=== PATIENT | male | born 1945 | race Caucasian/White ===

== ENCOUNTER 2020-12-08 05:14 | Emergency (ER) | payer MEDICARE, OTHER ==
[~2020-12-08] VITALS: Ht 167.7 cm; Wt 75.1 kg
[2020-12-08] MEDS ORDERED: KETOROLAC 30 MG/ML VIAL IVP STA (05:37)
[2020-12-08] MEDS ORDERED: NS IV 1000 ML 1,000 ML IV STA (05:37)
[2020-12-08] MEDS ORDERED: METOCLOPRAMIDE INJ 10 MG/2 ML (REGLAN) IVP STA (05:37)
--- NOTE | 2020-12-08 05:37 | ED Abdominal Pain ---
General Chief Complaint: Abdominal/GI Problems Stated Complaint: LOWER LEFT ABDOMINAL PAIN History of Present Illness Date Seen by Provider: December 08, 2020 Time Seen by Provider: 05:30 Initial Comments 75-year-old male presents with left lower quadrant pain. Patient reports that the pain started 4 days ago. Patient reports that he has a history of diverticulitis. He called his primary care provider who started him on Augmentin. Patient reports that the pain got better for 1 day and then has gotten worse. He denies any flank pain. He denies any vomiting. Patient reports that he has had bowel movements for the last 3 days however has not eaten much. He denies any urinary symptoms, fevers, chills, headache, cough or other systemic complaints. (CAMDEN HUIZAR DO) Allergies and Home Medications Allergies Coded Allergies: No Known Drug Allergies (Unverified , 12/08/20) Patient Home Medication List Home Medication List Reviewed: Yes (CAMDEN HUIZAR DO) Review of Systems Review of Systems Constitutional: No chills, No fever Respiratory: Denies Cough, Denies Shortness of Air Cardiovascular: Denies Chest Pain, Denies Irregular Heart Rate Gastrointestinal: Abdominal Pain; Denies Diarrhea, Denies Vomiting Genitourinary: No Symptoms Reported Musculoskeletal: no symptoms reported Skin: no symptoms reported Psychiatric/Neurological: No Symptoms Reported Endocrine: No Symptoms Reported Hematologic/Lymphatic: No Symptoms Reported (CAMDEN HUIZAR DO) Past Zbyusdw-Gcdecd-Sausqn Hx Past Med/Social Hx: Reviewed Nursing Past Med/Soc Hx (CAMDEN HUIZAR DO) Physical Exam Vital Signs Vital Signs - First Documented 12/08/20 05:23 Temp 36.0 Pulse 66 Resp 16 B/P (MAP) 160/73 (102) Pulse Ox 94 O2 Delivery Room Air (EDVIN OWENS DO) Vital Signs Capillary Refill : (CAMDEN HUIZAR DO) Height/Weight/BMI Height: '" Weight: lbs. oz. kg; BMI Method: General Appearance: no apparent distress Respiratory: lungs clear, normal breath sounds Cardiovascular: normal peripheral pulses, regular rate, rhythm Gastrointestinal: soft; No distended, No guarding, No rebound; tenderness (Left lower quadrant) Extremities: normal range of motion, non-tender Neurologic/Psychiatric: alert, normal mood/affect, oriented x 3 Skin: normal color, warm/dry (KIKO HUIZARVOR L DO) Progress/Results/Core Measures Results/Orders Lab Results Laboratory Tests Test 12/08/20 05:32 12/08/20 06:04 Range/Units White Blood Count 14.0 H 4.3-11.0 10^3/uL Red Blood Count 5.09 4.35-5.85 10^6/uL Hemoglobin 15.8 13.3-17.7 G/DL Hematocrit 45 40-54 % Mean Corpuscular Volume 89 80-99 FL Mean Corpuscular Hemoglobin 31 25-34 PG Mean Corpuscular Hemoglobin Concent 35 32-36 G/DL Red Cell Distribution Width 12.0 10.0-14.5 % Platelet Count 244 130-400 10^3/uL Mean Platelet Volume 9.2 7.4-10.4 FL Immature Granulocyte % (Auto) 0 % Neutrophils (%) (Auto) 83 H 42-75 % Lymphocytes (%) (Auto) 8 L 12-44 % Monocytes (%) (Auto) 9 0-12 % Eosinophils (%) (Auto) 0 0-10 % Basophils (%) (Auto) 0 0-10 % Neutrophils # (Auto) 11.6 H 1.8-7.8 X 10^3 Lymphocytes # (Auto) 1.1 1.0-4.0 X 10^3 Monocytes # (Auto) 1.2 H 0.0-1.0 X 10^3 Eosinophils # (Auto) 0.0 0.0-0.3 10^3/uL Basophils # (Auto) 0.0 0.0-0.1 10^3/uL Immature Granulocyte # (Auto) 0.1 0.0-0.1 10^3/uL Neutrophils % (Manual) 82 % Lymphocytes % (Manual) 8 % Monocytes % (Manual) 7 % Band Neutrophils 2 % Atypical Lymphocytes 1 % Blood Morphology Comment NORMAL Sodium Level 136 135-145 MMOL/L Potassium Level 3.9 3.6-5.0 MMOL/L Chloride Level 98 98-107 MMOL/L Carbon Dioxide Level 22 21-32 MMOL/L Anion Gap 16 H 5-14 MMOL/L Blood Urea Nitrogen 24 H 7-18 MG/DL Creatinine 1.23 0.60-1.30 MG/DL Estimat Glomerular Filtration Rate 58 BUN/Creatinine Ratio 20 Glucose Level 117 H 70-105 MG/DL Calcium Level 9.3 8.5-10.1 MG/DL Corrected Calcium 8.5-10.1 MG/DL Total Bilirubin 0.9 0.1-1.0 MG/DL Aspartate Amino Transf (AST/SGOT) 22 5-34 U/L Alanine Aminotransferase (ALT/SGPT) 16 0-55 U/L Alkaline Phosphatase 97 40-136 U/L C-Reactive Protein 2.32 H <0.50 MG/DL Total Protein 7.8 6.4-8.2 GM/DL Albumin 4.7 H 3.2-4.5 GM/DL Urine Color YELLOW Urine Clarity CLEAR Urine pH 6.0 5-9 Urine Specific [place] >=1.030 1.016-1.022 Urine Protein TRACE H NEGATIVE Urine Glucose (UA) NEGATIVE NEGATIVE Urine Ketones 2+ H NEGATIVE Urine Nitrite NEGATIVE NEGATIVE Urine Bilirubin NEGATIVE NEGATIVE Urine Urobilinogen 0.2 < = 1.0 MG/DL Urine Leukocyte Esterase NEGATIVE NEGATIVE Urine RBC (Auto) 1+ H NEGATIVE Urine RBC 5-10 H /HPF Urine WBC 0-2 /HPF Urine Squamous Epithelial Cells NONE /HPF Urine Crystals NONE /LPF Urine Bacteria NEGATIVE /HPF Urine Casts NONE /LPF Urine Mucus MODERATE H /LPF Urine Culture Indicated NO (ROVENSTINE,EDVIN L DO) Medications Given in ED Current Medications Medications Dose Ordered Sig/Daxa Route Start Time Stop Time Status Last Admin Dose Admin Iohexol 100 ml ONCE ONCE IV 12/08/20 05:45 12/08/20 05:46 DC 12/08/20 06:41 100 ML Sodium Chloride 100 ml ONCE ONCE IV 12/08/20 05:45 12/08/20 05:46 DC 12/08/20 06:41 100 ML (ROVENSTINE,EDVIN L DO) Vital Signs/I&O 12/08/20 12/08/20 12/08/20 05:23 06:37 07:09 Temp 36.0 36.0 Pulse 66 66 69 Resp 16 16 18 B/P (MAP) 160/73 (102) 145/72 (96) 130/71 (90) Pulse Ox 94 94 96 O2 Delivery Room Air Room Air Room Air (ROVENSTINE,EDVIN L DO) Departure Impression Primary Impression: Ureterolithiasis Additional Impression: Hydronephrosis Qualified Codes: N13.2 - Hydronephrosis with renal and ureteral calculous obstruction Disposition: HOME, SELF-CARE Condition: Improved Departure-Patient Inst. Decision time for Depature: 07:31 (EDVIN OWENS DO) Referrals: SELF,SCOTT ARREDONDO (PCP/Family) Primary Care Physician CORTES LIMON MD Add. Discharge Instructions: Call Dr Limon's (Urologist) office today to arrange a follow up appointment regarding your kidney stone. Strain all of your urine looking for a stone. Take the medication given today as instructed. Return to the ER for any worsening of your pain. All discharge instructions reviewed with patient and/or family. Voiced understanding. Scripts Ondansetron (Ondansetron Odt) 4 Mg Tab.rapdis 4 MG PO TID for Nausea, #10 TAB Prov: EDVIN OWENS DO 12/08/20 Oxycodone HCl/Acetaminophen (Oxycodone-Acetaminophen 5-325) 1 Each Tablet 1 EACH PO Q4H PRN for PAIN-MODERATE MDD 6 for 3 Days, #14 TAB 0 Refills Prov: EDVIN OWENS DO 12/08/20 Ibuprofen (Ibuprofen) 800 Mg Tablet 800 MG PO Q8H PRN for PAIN, #30 TAB 0 Refills Prov: YEIMISTEDVIN GOMEZ DO 12/08/20 Tamsulosin HCl (Flomax) 0.4 Mg Cap 0.4 MG PO DAILY, #5 CAP Prov: EDVIN OWENS DO 12/08/20 CAMDEN HUIZAR DO December 08, 2020 05:37 EDVIN OWENS DO December 08, 2020 07:34
[2020-12-08] MEDS ORDERED: HOLD METFORMIN - RECEIVED CONTRAST 20 ML VIAL IV SCH (05:45)
[2020-12-08] MEDS ORDERED: IOHEXOL 350 MG/ML 100 ML (OMNIPAQUE 350) VIAL IV ONE (05:45)
[2020-12-08] MEDS ORDERED: NS 100 ML (IVPB) BAG IV ONE (05:45)
[2020-12-08 06:13] LABS: BASOPHILS % (AUTO) 0 % (0-10); EOSINOPHILS % (AUTO) 0 % (0-10); HEMATOCRIT 45 % (40-54); HEMOGLOBIN 15.8 G/DL (13.3-17.7); LYMPHOCYTES # (AUTO) 1.1 X 10^3 (1.0-4.0); LYMPHOCYTES % (AUTO) 8 % (12-44); MEAN CORPUSCULAR HEMOGLOBIN 31 PG (25-34); MEAN CORPUSCULAR HGB CONC 35 G/DL (32-36); MEAN CORPUSCULAR VOLUME 89 FL (80-99); MEAN PLATELET VOLUME 9.2 FL (7.4-10.4); MONOCYTES # (AUTO) 1.2 X 10^3 (0.0-1.0); MONOCYTES % (AUTO) 9 % (0-12); NEUTROPHILS # (AUTO) 11.6 X 10^3 (1.8-7.8); NEUTROPHILS % (AUTO) 83 % (42-75); PLATELET COUNT 244 10^3/uL (130-400)
[2020-12-08 06:24] LABS: ATYPICAL LYMPHOCYTES 1 %; BAND NEUTROPHILS 2 %; LYMPHOCYTES % (MANUAL) 8 %; MONOCYTES % (MANUAL) 7 %; NEUTROPHILS % (MANUAL) 82 %
[2020-12-08 06:25] LABS: RBC MORPH NORMAL
[2020-12-08 06:34] LABS: ALANINE AMINOTRANSFERASE 16 U/L (0-55); ALKALINE PHOSPHATASE 97 U/L (40-136); BILIRUBIN,TOTAL 0.9 MG/DL (0.1-1.0); BUN/CREATININE RATIO 20; CALCIUM 9.3 MG/DL (8.5-10.1); CARBON DIOXIDE 22 MMOL/L (21-32); CHLORIDE 98 MMOL/L (98-107); CREATININE SERUM 1.23 MG/DL (0.60-1.30); GFR ESTIMATED 58; GLUCOSE 117 MG/DL (70-105); POTASSIUM 3.9 MMOL/L (3.6-5.0); SODIUM 136 MMOL/L (135-145); TOTAL PROTEIN 7.8 GM/DL (6.4-8.2)
[2020-12-08 06:35] LABS: ALBUMIN 4.7 GM/DL (3.2-4.5)
[2020-12-08 06:39] LABS: BACTERIA,URINE NEGATIVE /HPF; BILIRUBIN,URINE NEGATIVE (NEGATIVE); CLARITY,URINE CLEAR; COLOR,URINE YELLOW; GLUCOSE, URINE (UA) NEGATIVE (NEGATIVE); KETONES,URINE 2+ (NEGATIVE); LEUKOCYTE ESTERASE ,URINE NEGATIVE (NEGATIVE); NITRITE,URINE NEGATIVE (NEGATIVE); PROTEIN,URINE TRACE (NEGATIVE); WBC,URINE 0-2 /HPF
--- NOTE | 2020-12-08 07:22 | Diagnostic Imaging Report ---
EXAMINATION: CT abdomen and pelvis with intravenous contrast. TECHNIQUE: Multiple contiguous axial images were obtained through the abdomen and pelvis after the uneventful administration of intravenous contrast. All CT scans use one or more of the following dose optimizing techniques: automated exposure control, MA and/or KvP adjustment based on patient size and exam type or iterative reconstruction. HISTORY: Left lower quadrant abdominal pain. Recently diagnosed with diverticulitis. COMPARISON: None available. FINDINGS: The heart is unremarkable. The included lung bases are clear. Simple appearing hepatic cysts are seen throughout the liver. The gallbladder is unremarkable. The portal vein is patent. Obstructing calculus is seen in the mid left ureter measuring 6 mm with moderate left-sided hydronephrosis. Additional nonobstructing calculi are seen in the left kidney measuring up to 5 mm. There is perinephric fat stranding in the left kidney. The right kidney is unremarkable. The urinary bladder is nondistended. The liver, spleen, pancreas, and adrenal glands have a normal appearance. There is no pathologically enlarged mesenteric or retroperitoneal adenopathy. The bowel loops are nondilated. The appendix is visualized in the right lower quadrant and has a normal appearance. Scattered diverticuli are present in the descending and sigmoid colon without evidence of acute diverticulitis. There is no free fluid or free air. No acute osseous abnormalities. There is grade 1 anterolisthesis of L4 on L5 with bilateral pars defects at L4. Small fat-containing left inguinal hernia is noted. There is no free air, loculated collection, or adenopathy in the pelvis. IMPRESSION: 1. Obstructing urolithiasis in the mid left ureter measuring 6 mm with moderate left-sided hydronephrosis. Additional nonobstructing calculi are seen in the left kidney measuring up to 5 mm. 2. Scattered diverticuli without evidence of acute diverticulitis. 3. Grade 1 anterolisthesis of L4 on L5 with bilateral pars defects at L4. Dictated by: Dictated on workstation # [id number]
[2020-12-08] MEDS ORDERED: IBUP-1780 PO (07:34)
[2020-12-08] MEDS ORDERED: TMSL.4C PO (07:34)
[2020-12-08] MEDS ORDERED: ONDA4TAB11 PO (07:34)
[2020-12-08] MEDS ORDERED: OXYC1TAB11 PO (07:34)
[2020-12-08 07:55] VITALS: BP 145/76
[2020-12-12] MEDS ORDERED: FISH1CAP15 PO (15:03)
[2020-12-12] MEDS ORDERED: CHOL-34 PO (15:03)
[2020-12-12] MEDS ORDERED: L.AC1CAP6 PO (15:03)
[2020-12-12] MEDS ORDERED: CALC625T14 PO (15:03)
[2020-12-12] MEDS ORDERED: SELE200T11 PO (15:03)
[2020-12-12] MEDS ORDERED: MONT10TA32 PO (15:03)
[2020-12-12] MEDS ORDERED: GLUC100016 PO (15:03)
[2020-12-12] MEDS ORDERED: ATOR10TA66 PO (15:03)
[2020-12-12] MEDS ORDERED: MULT-1056 PO (15:03)
[2020-12-13] MEDS ORDERED: NITR-65 PO (09:50)
[2020-12-13] MEDS ORDERED: TRAM50TA3 PO (09:50)
[2020-12-13] MEDS ORDERED: TMSL.4C PO (09:50)
== END 2020-12-08 07:55 | disposition home or self-care (01) ==
LOC: ER FS 05:19
DX: N13.2 Hydronephrosis with renal and ureteral calculous obstruction (principal); Z87.19 Personal history of other diseases of the digestive system
CPT/HCPCS: 36415; 74177; 80053; 81000; 85007; 85027; 86141

== ENCOUNTER 2020-12-12 14:48 | Outpatient (CLI) | payer MEDICARE ==
[~2020-12-12] VITALS: Ht 167.7 cm; Wt 75.0 kg
[~2020-12-12 14:48] MED LIST changes: -ATOR10TA66 PO; -CALC625T14 PO; -CHOL-34 PO; -FISH1CAP15 PO; -GLUC100016 PO; -L.AC1CAP6 PO; -MONT10TA32 PO; -MULT-1056 PO; -NITR-65 PO; -SELE200T11 PO; -TRAM50TA3 PO
[2020-12-12] MEDS ORDERED: GLUC100016 PO ×2 (15:03)
[2020-12-12] MEDS ORDERED: SELE200T11 PO ×2 (15:03)
[2020-12-12] MEDS ORDERED: L.AC1CAP6 PO ×2 (15:03)
[2020-12-12] MEDS ORDERED: MONT10TA32 PO ×2 (15:03)
[2020-12-12] MEDS ORDERED: CHOL-34 PO ×2 (15:03)
[2020-12-12] MEDS ORDERED: ATOR10TA66 PO ×2 (15:03)
[2020-12-12] MEDS ORDERED: CALC625T14 PO ×2 (15:03)
[2020-12-12] MEDS ORDERED: MULT-1056 PO ×2 (15:03)
[2020-12-12] MEDS ORDERED: FISH1CAP15 PO ×2 (15:03)
[2020-12-13] MEDS ORDERED: TMSL.4C PO ×2 (09:50)
[2020-12-13] MEDS ORDERED: TRAM50TA3 PO ×2 (09:50)
[2020-12-13] MEDS ORDERED: NITR-65 PO ×2 (09:50)
== END 2020-12-12 15:10 | disposition home or self-care (01) ==
LOC: PREOP 14:48
PROVIDERS: ATTEND Urology
DX: Z01.818 Encounter for other preprocedural examination (principal)

== ENCOUNTER → 2020-12-12 | Outpatient (CLI) | payer MEDICARE ==
[~2020-12-12] MED LIST: ATOR10TA66 PO; CALC625T14 PO; CHOL-34 PO; FISH1CAP15 PO; GLUC100016 PO; IBUP-1780 PO; L.AC1CAP6 PO; MONT10TA32 PO; MULT-1056 PO; NITR-65 PO; ONDA4TAB11 PO; OXYC1TAB11 PO; SELE200T11 PO; TMSL.4C PO; TRAM50TA3 PO
--- NOTE | 2020-12-12 15:54 | Diagnostic Imaging Report ---
INDICATION: Left ureteral stone COMPARISON: 12/08/2020 TECHNIQUE: Single radiograph of the abdomen dated 12/12/2020 FINDINGS: Several left-sided renal calculi are again identified, including a 6 mm calculus overlying the superior pole of the left kidney. Punctate calcifications overlying the right renal shadow are again identified. A 6 mm stone is seen overlying the left L5 transverse process, overlying the expected location of the left ureter. This corresponds to previously noted ureterolith as seen on the prior CT, in unchanged location when compared to that prior examination. Multiple phleboliths within the lower pelvis. Nonobstructive bowel gas pattern. No free air. Scattered osseous degenerative changes without acute osseous abnormality. IMPRESSION: A 6 mm left-sided ureterolith adjacent to the L5 level, not significantly changed in position when compared to the prior examination. Additional left greater than right bilateral renal calculi. Dictated by: Dictated on workstation # [id number]
== END ==
LOC: RAD 12:39
PROVIDERS: ATTEND Urology
DX: N20.2 Calculus of kidney with calculus of ureter (principal)
CPT/HCPCS: 74018

== ENCOUNTER 2020-12-13 06:47 | Day surgery (SDC) | payer MEDICARE ==
[~2020-12-13] VITALS: Ht 167 cm; Wt 75.0 kg
[2020-12-13] VITALS (8 sets, daily range): BP systolic 113–177; BP diastolic 64–91
[~2020-12-13 06:47] MED LIST changes: +ATOR10TA66 PO; +CALC625T14 PO; +CHOL-34 PO; +FISH1CAP15 PO; +GLUC100016 PO; +L.AC1CAP6 PO; +MONT10TA32 PO; +MULT-1056 PO; +SELE200T11 PO
[2020-12-13] MEDS ORDERED: SEVOFLURANE (ULTANE) 15 ML INHAL SOLN ONE (06:59)
[2020-12-13] MEDS ORDERED: proPOfol 200 MG/20 ML (DIPRIVAN) VIAL IV ONE ×2 (06:59→08:06)
[2020-12-13] MEDS ORDERED: LIDOCAINE PF 2% 5 ML (XYLOCAINE) VIAL ONE (06:59)
[2020-12-13] MEDS ORDERED: MIDAZOLAM 2 MG/2 ML (VERSED) VIAL ONE (06:59)
[2020-12-13] MEDS ORDERED: fentaNYL INJ 100 MCG/2 ML AMP ONE (06:59)
--- NOTE | 2020-12-13 07:03 | Progress Note-Pre Operative ---
Pre-Operative Progress Note H&P Reviewed The H&P was reviewed, patient examined and no changes noted. Date Seen by Provider: Dec 13, 2020 Time Seen by Provider: 07:02 Date H&P Reviewed: Dec 13, 2020 Time H&P Reviewed: 07:02 Pre-Operative Diagnosis: LT URETERAL AND RENAL STONES CORTES LIMON MD Dec 13, 2020 07:03
[2020-12-13] MEDS ORDERED: ONDANSETRON 4 MG/2 ML (SDV) Z0FRAN ONE (07:07)
[2020-12-13] MEDS ORDERED: cefTRIAXone FOR IV USE 1,000 MG in WATER (STERILE) FOR INJECTION 10 ML IV ONE (07:15)
[2020-12-13] MEDS ORDERED: cefTRIAXone 1,000 MG IV (ROCEPHIN) VIAL ONE (07:17)
[2020-12-13] MEDS: LACTATED RINGERS 1,000 ML IV PRN ×2 (07:30→08:20)
--- NOTE | 2020-12-13 07:44 | Progress Note-Post Operative ---
Post-Operative Progess Note Surgeon (s)/Retaining Room Cutter (s) Surgeon CORTES LIMON MD Retaining Room Cutter: NONE Pre-Operative Diagnosis LT URETERAL AND RENAL STONES Post-Operative Diagnosis SAME Procedure & Operative Findings Date of Procedure 12/13/20 Procedure Performed/Findings CYSTOSCOPY, LT URETERAL STONE MANIPULATION AND STENT PLACEMENL Anesthesia Type GENERAL Estimated Blood Loss Estimated blood loss (mL): NONE Specimens/Packing Specimens Removed NONE Packing: NONE CORTES LIMON MD Dec 13, 2020 07:44
--- NOTE | 2020-12-13 07:49 | Diagnostic Imaging Report ---
INDICATION: ESWL preop A supine view of the abdomen shows the bowel gas pattern to be within normal limits. Calcification is projected over the L5 transverse process on the left. There are multiple calcifications in the left kidney measuring 2-6 mm. All of these findings are stable compared to 12/12/2020 study. IMPRESSION: Stable left-sided urinary tract stones. Dictated by: Dictated on workstation # [id number]
[2020-12-13] MEDS ORDERED: ROCURONIUM 10 MG/ML 5 ML SYRINGE IV ONE (08:13)
--- NOTE | 2020-12-13 08:46 | Discharge Inst-Urology ---
Discharge Inst-Urology Reconcile Patient Problems Problems Reviewed?: Yes Final Diagnosis LT URETERAL AND RENAL STONE MANIPULATION Patient Instructions/Follow Up Plan/Assessment/Instructions Please make appointment to been seen in office Monday 12/25, KUB prior to it. KUB and oblique/lateral view on way home STAY OFF ASA Increase oral fluids for 48 hours and then as needed. Diet and Activity as tolerated. If questions or concerns contact your physician Or seek help at emergency department. CORTES LIMON MD Dec 13, 2020 08:46
--- NOTE | 2020-12-13 08:47 | Anesthesia-General Post-Op ---
General Patient Condition Mental Status/LOC: Same as Preop Cardiovascular: Satisfactory Nausea/Vomiting: Absent Respiratory: Satisfactory Pain: Controlled Complications: Absent Post Op Complications Complications None Follow Up Care/Instructions Patient Instructions None needed. Anesthesia/Patient Condition Patient Condition Patient is doing well, no complaints, stable vital signs, no apparent adverse anesthesia problems. No complications reported per nursing. BREN CHANG CRNA Dec 13, 2020 08:47
[2020-12-13] MEDS ORDERED: ONDANSETRON 4 MG/2 ML (SDV) Z0FRAN IVP PRN (09:00)
[2020-12-13] MEDS ORDERED: morphine INJ 10 MG/ML 1ML (SYR OR VIAL) IVP ONE (09:00)
[2020-12-13] MEDS ORDERED: fentaNYL INJ 100 MCG/2 ML AMP IVP ONE (09:00)
[2020-12-13] MEDS ORDERED: MEPERIDINE (DEMEROL) INJ 50 MG/ML IVP ONE (09:00)
[2020-12-13] MEDS ORDERED: TMSL.4C PO ×2 (09:50)
[2020-12-13] MEDS ORDERED: NITR-65 PO ×2 (09:50)
[2020-12-13] MEDS ORDERED: TRAM50TA3 PO ×2 (09:50)
--- NOTE | 2020-12-13 11:19 | Diagnostic Imaging Report ---
INDICATION: Left kidney stone surgery. Time of exam 10:44 a.m. Correlation is made with radiograph from earlier the same day. A left-sided double-J nephroureteral stent has been placed. There are numerous calculi overlying the left kidney. Calcifications in the left hemipelvis are again noted. Lateral view demonstrates severe degenerative disc disease at L4-L5 level with grade 1/2 spondylolisthesis of L4 on L5. IMPRESSION: Left-sided renal calculi with placement of left-sided double-J nephroureteral stent. Dictated by: Dictated on workstation # [id number]
--- NOTE | 2020-12-13 13:40 | OPERATIVE REPORT ---
DATE OF SERVICE: 12/13/2020 PREOPERATIVE DIAGNOSIS: Left proximal ureteral and left renal stones. POSTOPERATIVE DIAGNOSIS: Left proximal ureteral and left renal stones. OPERATION PERFORMED: Cystoscopy, left ureteral stone manipulation and insertion of left ureteral stent. SURGEON: Mingo Limon MD ANESTHESIA: General. COMPLICATIONS: None. DESCRIPTION OF PROCEDURE: Under satisfactory general anesthesia, the patient in lithotomy position, genitalia were prepped and draped in the usual sterile fashion. Cystoscope was introduced under vision. The anterior urethra was normal. The prostate was mildly enlarged, but there was a median bar causing some bladder neck obstruction. Bladder was entered and revealed some trabeculations. Ureteric orifices were displaced upward and laterally with clear effluxes, sluggish on the left side. There was no foreign body, bladder tumor or stone visualized. Using the foroblique lens, I passed a spiral tip ureteral catheter, which seems to be away from that calcification in the distal ureter. I came to the level of the stone, I was not able to push it, but I flushed it with saline into the kidney and followed with the catheter all the way up. I removed the ureteral catheter, I inserted a 6-Pashto 26 cm double-J stent guided fluoroscopically all the way to the left renal pelvis. I removed the guidewire and the stent was seen draining nicely proximally fluoroscopically and distally endoscopically. By moving the ureter area with the scope, I could see that the calcification that was distally seem to be outside the ureter and I did not feel it on the way in with the catheter's out. Bladder was evacuated. The cystoscope was removed. The patient tolerated the procedure and anesthesia well and was sent to recovery room in stable condition. PLAN: ESWL of the present stone as well as the one in the kidney. Next time when the machine is here in 2 weeks, the patient is to remain off the aspirin, so we can perform that. Job ID: [id number] DocumentID: [id number] Dictated Date: 12/13/2020 08:50:00 Teacher [employer] Date: 12/13/2020 13:39:43 Dictated By: MINGO LIMON MD
== END 2020-12-13 10:50 | disposition home or self-care (01) ==
LOC: SDC 06:47
PROVIDERS: ATTEND Urology
DX: N20.2 Calculus of kidney with calculus of ureter (principal)
CPT/HCPCS: 52332; 52352; 74018; 74019; 76000; 87081; C2625

== ENCOUNTER → 2020-12-19 | Outpatient (CLI) | payer MEDICARE ==
[~2020-12-19] MED LIST changes: +NITR-65 PO; +TRAM50TA3 PO
== END | disposition home or self-care (01) ==
LOC: PREOP 05:38
PROVIDERS: ATTEND Urology
DX: Z01.818 Encounter for other preprocedural examination (principal)

== ENCOUNTER → 2020-12-25 | Outpatient (CLI) | payer MEDICARE ==
[~2020-12-25] MED LIST changes: +TRM50T PO
--- NOTE | 2020-12-25 15:22 | Diagnostic Imaging Report ---
INDICATION: Left nephrolithiasis. EXAMINATION: KUB at 3:06 PM. FINDINGS: There is a left double-J ureteral stent in place. There is a 5 mm calculus in the upper pole of the left kidney and a 5 mm calculus in the lower pole of the left kidney. There are some calcifications in the pelvis which are probably phleboliths. IMPRESSION: Left nephrolithiasis. Dictated by: Dictated on workstation # [id number]
== END ==
LOC: RAD 14:49
PROVIDERS: ATTEND Urology
DX: N20.0 Calculus of kidney (principal)
CPT/HCPCS: 74018

== ENCOUNTER 2020-12-26 06:20 | Day surgery (SDC) | payer MEDICARE ==
[~2020-12-26] VITALS: Ht 167.7 cm; Wt 75.0 kg
[2020-12-26] VITALS (9 sets, daily range): BP systolic 127–156; BP diastolic 76–88
[~2020-12-26 06:20] MED LIST changes: -TRM50T PO
--- NOTE | 2020-12-26 07:14 | Progress Note-Pre Operative ---
Pre-Operative Progress Note H&P Reviewed The H&P was reviewed, patient examined and no changes noted. Date Seen by Provider: Dec 26, 2020 Time Seen by Provider: 07:14 Date H&P Reviewed: Dec 26, 2020 Time H&P Reviewed: 07:14 Pre-Operative Diagnosis: LT RENAL STONES CORTES LIMON MD Dec 26, 2020 07:14
[2020-12-26] MEDS: LACTATED RINGERS 1,000 ML IV PRN ×2 (07:24→09:57)
[2020-12-26] MEDS ORDERED: cefTRIAXone 1,000 MG in WATER (STERILE) FOR INJECTION 10 ML IV ONE (07:30)
--- NOTE | 2020-12-26 08:10 | Diagnostic Imaging Report ---
INDICATION: Nephrolithiasis KUB 6:56 AM There are calculi projecting over the mid and lower portions of the left kidney. There is a double-J ureteral stent in place. There are calcified phleboliths present. There may be some tiny calculi fragments projected over the inferior pole the right kidney. IMPRESSION: Left nephrolithiasis. No appreciable change from previous day. Dictated by: Dictated on workstation # [id number]
--- NOTE | 2020-12-26 09:37 | Progress Note-Post Operative ---
Post-Operative Progess Note Surgeon (s)/Small Kick Press Operator (s) Surgeon CORTES LIMON MD Small Kick Press Operator: NONE Pre-Operative Diagnosis LT RENAL STONES Post-Operative Diagnosis SAME Procedure & Operative Findings Date of Procedure 12/26/20 Procedure Performed/Findings LT ESWL AND CYSTO WITH REMOVAL OF STENT Anesthesia Type GENERAL Estimated Blood Loss Estimated blood loss (mL): NONE Specimens/Packing Specimens Removed NONE TO PATH Packing: NONE CORTES LIMON MD Dec 26, 2020 09:37
--- NOTE | 2020-12-26 09:38 | Discharge Inst-Urology ---
Discharge Inst-Urology Reconcile Patient Problems Problems Reviewed?: Yes Final Diagnosis LT RENAL STONES Patient Instructions/Follow Up Plan/Assessment/Instructions Please make appointment to been seen in office Monday 01/08. KUB prior to it. KUB on way home Post ESWL instructions Increase oral fluids for 48 hours and then as needed. Diet and Activity as tolerated. If questions or concerns contact your physician Or seek help at emergency department. CORTES LIMON MD Dec 26, 2020 09:38
[2020-12-26] MEDS ORDERED: fentaNYL INJ 100 MCG/2 ML AMP ONE (09:44)
[2020-12-26] MEDS ORDERED: MIDAZOLAM 2 MG/2 ML (VERSED) VIAL ONE (09:45)
[2020-12-26] MEDS ORDERED: proPOfol 200 MG/20 ML (DIPRIVAN) VIAL IV ONE (09:45)
[2020-12-26] MEDS ORDERED: ONDANSETRON 4 MG/2 ML (SDV) Z0FRAN ONE (09:45)
[2020-12-26] MEDS ORDERED: SEVOFLURANE (ULTANE) 15 ML INHAL SOLN ONE ×2 (09:45→10:08)
[2020-12-26] MEDS ORDERED: FUROSEMIDE 40 MG/4 ML INJ (LASIX) ONE (09:45)
[2020-12-26] MEDS ORDERED: KETOROLAC 30 MG/ML VIAL ONE (09:45)
[2020-12-26] MEDS ORDERED: LIDOCAINE PF 2% 5 ML (XYLOCAINE) VIAL ONE (10:08)
[2020-12-26] MEDS ORDERED: TRM50T PO (11:04)
[2020-12-26] MEDS ORDERED: TMSL.4C PO (11:04)
[2020-12-26] MEDS ORDERED: NITR-65 PO (11:04)
--- NOTE | 2020-12-26 12:02 | Anesthesia-General Post-Op ---
General Patient Condition Mental Status/LOC: Same as Preop Cardiovascular: Satisfactory Nausea/Vomiting: Absent Respiratory: Satisfactory Pain: Controlled Complications: Absent Post Op Complications Complications None Follow Up Care/Instructions Patient Instructions None needed. Anesthesia/Patient Condition Patient Condition Patient is doing well, no complaints, stable vital signs, no apparent adverse anesthesia problems. No complications reported per nursing. BREN CHANG CRNA Dec 26, 2020 12:02
--- NOTE | 2020-12-26 12:18 | Diagnostic Imaging Report ---
INDICATION: Renal stones. Status post lithotripsy. COMPARISON: Earlier same day at 6:56 AM. FINDINGS: A nephroureteral stent on the left side has been removed. There remain multiple mineralized stones overlying the left renal fossa that have not substantially changed. Scattered pelvic phleboliths are similar. Stable regional skeleton. Moderate volume of colonic stool. IMPRESSION: Removal of left-sided nephroureteral stent without appreciable change in the left-sided renal calculi. Dictated by: Dictated on workstation # [id number]
[2020-12-26] MEDS ORDERED: VASOPRESSIN INJECTION 20 UNIT/ML VIAL ONE (12:35)
--- NOTE | 2020-12-26 14:53 | OPERATIVE REPORT ---
DATE OF SERVICE: 12/26/2020 PREOPERATIVE DIAGNOSIS: Left renal stones. POSTOPERATIVE DIAGNOSIS: Left renal stones. OPERATION PERFORMED: Left ESWL with cystoscopy and removal of left ureteral stent. SURGEON: Mingo Limon MD ANESTHESIA: General. COMPLICATIONS: None. DESCRIPTION OF PROCEDURE: Under satisfactory general anesthesia, the patient in supine position on the ESWL table, genitalia were prepped and draped in the usual sterile fashion. Flexible cystoscope was introduced under vision. The distal end of the left ureteral stent was grasped with grasping forceps and removed completely. Then, the upper left renal stone that was the offending ureteral stone, pushed back into the kidney was localized. Shocks were delivered at kV of 6, a total of 2500 shocks completely fragmented the stone. Then, we moved on the lower pole calyceal stone and 500 shocks were delivered, which fragmented the stone as well. The patient received 30 mg of Toradol and 40 mg of Lasix IV at the end of the procedure. He tolerated the procedure and anesthesia well and was sent to recovery room in stable condition. Job ID: [id number] DocumentID: [id number] Dictated Date: 12/26/2020 10:02:03 Director Federal Date: 12/26/2020 14:52:49 Dictated By: MINGO LIMON MD
== END 2020-12-26 11:50 | disposition home or self-care (01) ==
LOC: SDC 06:20
PROVIDERS: ATTEND Urology
DX: N20.0 Calculus of kidney (principal); E78.5 Hyperlipidemia, unspecified; Z79.899 Other long term (current) drug therapy; Z80.9 Family history of malignant neoplasm, unspecified
CPT/HCPCS: 74018; 87081

== ENCOUNTER → 2021-01-08 | Outpatient (CLI) | payer MEDICARE ==
[~2021-01-08] MED LIST changes: +TRM50T PO
--- NOTE | 2021-01-08 14:07 | Diagnostic Imaging Report ---
EXAMINATION: Abdomen 1 view HISTORY: Renal stone status post ESWL COMPARISON: 12/26/2020 FINDINGS: There is a moderate amount of gas and stool throughout the colon. Nonobstructive bowel gas pattern. There are multiple radiopacities overlying the left kidney which have decreased in size measuring up to 3 mm on today's exam. The osseous structures are intact. IMPRESSION: Decreased size of the left renal opacities measuring up to 3 mm. Dictated by: Dictated on workstation # [id number]
== END ==
LOC: RAD 13:21
PROVIDERS: ATTEND Urology
DX: N20.0 Calculus of kidney (principal)
CPT/HCPCS: 74018

== ENCOUNTER → 2021-04-09 | Outpatient (CLI) | payer MEDICARE ==
--- NOTE | 2021-04-09 18:47 | Diagnostic Imaging Report ---
INDICATION: Status post left-sided ESWL. COMPARISON: 01/08/2021. FINDINGS: Single frontal supine radiographic view of the abdomen was obtained. Small extraosseous calcifications are again identified projecting over the inferior pole of the left kidney. No unexpected radiopaque foreign bodies are seen. Small bowel loops are nondistended. There is no large collection of free intraperitoneal air. Moderate air and stool is present within the ascending colon. IMPRESSION: 1. Redemonstration of left renal calculi. 2. Nonobstructed small bowel gas pattern. Dictated by: Dictated on workstation # [id number]
== END ==
LOC: RAD 15:43
PROVIDERS: ATTEND Urology
DX: N20.0 Calculus of kidney (principal)
CPT/HCPCS: 74018